=== PATIENT | male | born 2000 | race Caucasian/White ===

== ENCOUNTER 2018-08-16 06:43 | Emergency (ER) | payer SELFPAY ==
[~2018-08-16] VITALS: Ht 175.3 cm; Wt 115.0 kg
[2018-08-16 06:49] VITALS: BP 153/63; PULSE 69; RESP 16; Ht 175.3 cm; Wt 115.0 kg
[2018-08-16] MEDS ORDERED: KETOROLAC 60 MG INJ IM STA (07:11)
[2018-08-16] MEDS ORDERED: DEXAMETHASONE 10 MG/ML 1 ML INJ IM ONE (07:30)
[2018-08-16] MEDS ORDERED: CYCLOBENZAPRINE 10 MG TAB PO ONE (07:30)
[2018-08-16] MEDS ORDERED: CYCL10TA7 PO (08:03)
[2018-08-16] MEDS ORDERED: PRED20TA PO (08:03)
[2018-08-16] MEDS ORDERED: NAPR-985 PO (08:03)
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
== END 2018-08-16 08:15 | disposition home or self-care (01) ==
LOC: FTE 06:43
DX: S29.012A Strain of muscle and tendon of back wall of thorax, initial encounter (principal); X58.XXXA Exposure to other specified factors, initial encounter; Y92.89 Other specified places as the place of occurrence of the external cause
CPT/HCPCS: 81003; 96372; 99284; J1100; J1885